=== PATIENT | female | born 1980 | race Hispanic/Latino ===

== ENCOUNTER 2017-11-30 09:32 | Outpatient (CLI) | payer OTHER ==
--- NOTE | 2017-11-30 10:31 | ULT ---
PELVIC ULTRASOUND: HISTORY: Anemia. Heavy periods. COMPARISON: None. TECHNIQUE: Transabdominal and endovaginal imaging of the pelvis is performed. The right ovary was interrogated with hook-scale, color-flow, Doppler imaging, and spectral wave-form analysis. FINDINGS: The uterus is identified, measuring 4.1 x 4.5 x 9 cm. There are no myometrial masses. The endometrium has a normal echotexture, measuring 0.6 cm. A small amount of fluid in the endometri um, at the level of the fundus. The left ovary is not appreciated. No masses or fluid in the left adnexa. The right ovary is limited in evaluation, measuring 2.4 x 2.4 x 2.5 cm. OVARIAN DOPPLER: There is vascular flow to the right ovary. IMPRESSION: 1. Limited evaluation of the right ovary. Nonvisulaization of the left ovary. 2. Normal echotexture and diameter of the endometrium. 3. Given the patient's history, consider pelvic MRI. POS: [facility]
== END 2017-11-30 09:33 | disposition home or self-care (01) ==
LOC: ULT 09:32
PROVIDERS: ATTEND Family Medicine
DX: N92.0 Excessive and frequent menstruation with regular cycle (principal); D64.9 Anemia, unspecified
CPT/HCPCS: 76856